=== PATIENT | female | born 1960 | race Caucasian/White ===

== ENCOUNTER → 2021-06-01 07:57 | Outpatient (BNVA) | payer OTHER, SELFPAY | PROVIDERS: PCP Internal Medicine; Visit Provider Nurse Practitioner Family | DX: G43.109 Migraine with aura, not intractable, without status migrainosus (principal); G47.33 Obstructive sleep apnea (adult) (pediatric) | CPT/HCPCS: 99212 ==

== ENCOUNTER → 2021-07-01 09:53 | Outpatient (BNVA) | payer OTHER, SELFPAY | PROVIDERS: Visit Provider Nurse Practitioner Family | DX: G43.109 Migraine with aura, not intractable, without status migrainosus (principal); G47.33 Obstructive sleep apnea (adult) (pediatric) | CPT/HCPCS: Q3014 ==

== ENCOUNTER → 2021-10-10 10:40 | Outpatient (BNVA) | payer OTHER, SELFPAY | PROVIDERS: Visit Provider Nurse Practitioner Family | DX: G43.109 Migraine with aura, not intractable, without status migrainosus (principal); H11.31 Conjunctival hemorrhage, right eye | CPT/HCPCS: 99212 ==

== ENCOUNTER → 2021-11-09 13:20 | Outpatient (BNVA) | payer OTHER, SELFPAY | PROVIDERS: PCP Internal Medicine; Visit Provider Nurse Practitioner Family | DX: G43.109 Migraine with aura, not intractable, without status migrainosus (principal); Z79.899 Other long term (current) drug therapy | CPT/HCPCS: 99212 ==

== ENCOUNTER → 2022-02-09 10:18 | Outpatient (BNVA) | payer OTHER, SELFPAY | PROVIDERS: PCP Internal Medicine; Visit Provider Nurse Practitioner Family | DX: G43.109 Migraine with aura, not intractable, without status migrainosus (principal); G47.33 Obstructive sleep apnea (adult) (pediatric) | CPT/HCPCS: 99212 ==

== ENCOUNTER → 2022-08-09 11:06 | Outpatient (BNVA) | payer OTHER, SELFPAY | PROVIDERS: PCP Internal Medicine; Visit Provider Nurse Practitioner Family | DX: G43.109 Migraine with aura, not intractable, without status migrainosus (principal); G47.33 Obstructive sleep apnea (adult) (pediatric) | CPT/HCPCS: 99212 ==

== ENCOUNTER 2023-03-09 08:48 | Outpatient (AMB) | payer OTHER, SELFPAY ==
--- NOTE | 2023-03-09 08:50 | MHC.OFFVIS ---
Intake Vital Signs 03/09/23 08:54 Weight 163 lb 2 oz BP 110/70 Blood Pressure Location Lt brachial Position Sitting Pulse 80 Pulse Source Pulse Oximeter Pulse Oximetry (%) 100 Oxygen Delivery Method Room Air Intake Visit Reasons: Follow up - HORACIO/Confirmed Intake Note: F/U sleep Nurse Companion Required: No Allergies ciprofloxacin Allergy (Intermediate, Verified 03/09/23 08:51) Unknown morphine Allergy (Intermediate, Verified 03/09/23 08:51) Unknown topiramate Allergy (Intermediate, Verified 03/09/23 08:51) Unknown HPI HPI Comments History of Present Illness Details 62 y/o female patient presents for follow up of migraine. Pt reports she has mild to moderate migraine days X2 /month. She used Fioricet twice a month to manage the migraine and helped relieve the headache. Pt is on Emgality 120 mg, monthly injection. No side effects reported. Denies eye pain or neck pain, and her mood is stable. She returned CPAP, can't sleep with CPAP, the mask was very uncomfortable. Pt does not want to use CPAP anymore. Pt stopped taking ambien, and having difficulty staying sleep. ?? She had a right total knee replacement done July,, and having difficulty walking, and gained wt. [facility] Medical History Failed total knee replacement Diabetes High blood pressure Surgical History H/O hand surgery History of thyroidectomy H/O: hysterectomy Family History Mother Diabetes Sister Stroke Other Thyroid disease Social History (Updated 03/09/23 @ 08:54 by Meme Mathews CMA) Household Members: None Alcohol intake: never Patient Tobacco Use Status: Never used Tobacco Review of Systems Const All systems reviewed & are unremarkable except as noted in HPI and below ENT Reports Normal hearing present Neuro Reports Normal hearing present Physical Exam Vital Signs: Last Vital Signs Pulse 80 03/09/23 08:54 BP 110/70 03/09/23 08:54 Pulse Ox 100 03/09/23 08:54 Oxygen Delivery Method Room Air 03/09/23 08:54 Const General: cooperative Orientation/consciousness: patient oriented x3 Limitations: ambulation with walker Resp Effort & Inspection: normal respiratory effort and able to speak in complete sentences Neuro General: patient oriented x3 and moves all extremities Cranial nerves: Yes Bilaterally intact EOM present, Yes Normal facial strength present, Yes Midline tongue present, Yes Symmetric palate elevation present, Yes Normal hearing present, Yes Ability to bilaterally rotate head present and Yes Ability to bilaterally elevate shoulders present Cognition (Neuro): normal cognition Gait exam (Neuro): Assistive device used Psych Appearance: grossly normal Speech and movement: Normal speech and movement present Affect: normal affect Assessment & Plan Assessment & Plan (1) Chronic migraine with aura: Comment: sees bright spots. ? medication adaption headache component. Code(s): G43.109 - Migraine with aura, not intractable, without status migrainosus (2) Obstructive sleep apnea: Comment: not on CPAP- pt returned machine Code(s): G47.33 - Obstructive sleep apnea (adult) (pediatric) Plan Continue to take monthly Emgality 120 mg injection. Pt may use Fioricet as needed to treat acute migraine attack. Advised patient to try Calm Sleep supplement to help her sleep. Medications: New doxyenocjd-jpuxiemufxemw-fnff 50-300-40 mg (Fioricet) 1 cap PO ONCE PRN 14 caps 1RF pain 90 days Refilled galcanezumab-gnlm (Emgality Pen) Loading dose x's 1- 2 120mg injections = 240mg 120 mg subcut ONCE 1 mL 6RF 1 month Discontinued wdtfduwiwn-regupykgubhun-utdb 50-300-40 mg (Fioricet) 1 tab at onset of migraine, may repeat in 4 hours with no more than 2 tabs per day and 4 tabs per week Discontinued Reason: Doctor's Order 1 cap PO Q4H PRN 24 caps 3RF pain Coding Level of Care Code Est Pt Level 3 (10784) Diagnoses Chronic migraine with aura G43.109 Obstructive sleep apnea G47.33
[2023-03-09 08:54] VITALS: BP 110/70; PULSE 80; O2SAT 100
== END 2023-03-09 09:18 | disposition home or self-care (01) ==
PROVIDERS: PCP Internal Medicine; Visit Provider Nurse Practitioner Family
DX: G43.109 Migraine with aura, not intractable, without status migrainosus (principal); G47.33 Obstructive sleep apnea (adult) (pediatric)
CPT/HCPCS: 99213

== ENCOUNTER → 2023-03-09 08:48 | Outpatient (BNVA) | payer OTHER, SELFPAY | PROVIDERS: PCP Internal Medicine; Visit Provider Nurse Practitioner Family | DX: G43.109 Migraine with aura, not intractable, without status migrainosus (principal); G47.33 Obstructive sleep apnea (adult) (pediatric) | CPT/HCPCS: 99212 ==

== ENCOUNTER 2023-12-19 11:24 | Outpatient (AMB) | payer OTHER, SELFPAY ==
--- NOTE | 2023-12-19 11:29 | A.OFFVIS_ITS ---
Vital Signs 12/19/23 11:30 Height 5 ft 3 in Weight 173 lb BMI 30.6 BP 118/82 Blood Pressure Location Rt brachial Position Sitting Pulse 88 Pulse Source Pulse Oximeter Pulse Oximetry (%) 98 Oxygen Delivery Method Room Air Intake Visit Reasons: 6 mnts f/u for HORACIO - LVM Intake Note: Patient presents for follow up. Allergies ciprofloxacin Allergy (Intermediate, Verified 12/19/23 11:32) Unknown morphine Allergy (Intermediate, Verified 12/19/23 11:32) Unknown topiramate Allergy (Intermediate, Verified 12/19/23 11:32) Unknown Medication List - Last Reconciled 12/19/23 by Usha Bhandari, ACID POLYMERIZATION OPERATOR albuterol sulfate 90 mcg/actuation 2 puffs inhalation Q6H PRN albuterol sulfate mg inhalation Q6H PRN blood sugar diagnostic (FreeStyle Lite Strips) As directed twice a day yzptlutnxo-gzgazrabzvtiu-rrtf 50-300-40 mg (Fioricet) 1 cap PO ONCE PRN 90 days calcium carbonate-vitamin D3 600 mg-10 mcg (400 unit) 0 tabs PO DAILY PRN cholecalciferol (vitamin D3) (Vitamin D3) 25 mcg PO DAILY clonazepam 1 mg PO BID PRN cyanocobalamin (vitamin B-12) (Vitamin B-12) 1,000 mcg PO DAILY empagliflozin (Jardiance) 10 mg PO DAILY fluticasone propionate 110 mcg/actuation (Flovent HFA) 1 puff PO BID galcanezumab-gnlm (Emgality Pen) 120 mg subcut ONCE 1 month hydromorphone 0 mg PO lisinopril 20 mg PO DAILY metformin 1,000 mg PO BID omeprazole 20 mg PO DAILY oxycodone-acetaminophen 5-325 mg 1 tab PO Q8H PRN simvastatin 10 mg PO DAILY PRN tizanidine 2 mg PO TID tramadol 50 - 100 mg PO QID PRN HPI Comments Details: 63-yr-old female presents for f/u visit. Pt reports she had a [facility] ER eval for chest pain a/w a severe pressure headache (not her typical migraine) and dizziness after bending over and standing up. She states that she took a Fioricet which helped the headache a little, but the chest pain persisted. Thus, she went to the ER, where work-up was unremarkable. She is scheduled for stress test at Cardiology, which had been ordered prior to the ER eval d/t she had been having episodes of HTN and chest pain- but not as severe as the day of the ER eval. She is having a low grade migraine headache once in a while. She may have a more severe migraine attack once every month or every other month. Sometimes heat can trigger her migraines. She is complaint w/ Emgality. Using Tylenol for milder migraine and the Fioricet prn for severe migraine attacks. Baseline headache characteristics: Bifrontal/temporal throbbing pain headache a/w photophobia, phonophobia, nausea, activity intolerance. [facility] Medical History Failed total knee replacement Diabetes High blood pressure Surgical History H/O hand surgery History of thyroidectomy H/O: hysterectomy Family History Mother Diabetes Sister Stroke Other Thyroid disease Social History Household Members: None Alcohol intake: never Patient Tobacco Use Status: Never used Tobacco Physical Exam Vital Signs: Last Vital Signs Pulse 88 12/19/23 11:30 BP 118/82 12/19/23 11:30 Pulse Ox 98 12/19/23 11:30 Oxygen Delivery Method Room Air 12/19/23 11:30 BMI result Body Mass Index 30.6 Const General: cooperative and no acute distress Orientation/consciousness: patient oriented x3 Resp Effort & Inspection: normal respiratory effort and able to speak in complete sentences Neuro General: patient oriented x3 Cranial nerves: Yes CN's II-XII intact bilaterally Cognition (Neuro): normal cognition Psych Appearance: grossly normal Mental Status: mental status grossly normal Speech and movement: Normal speech and movement present Affect: normal affect Attitude: cooperative Assessment & Plan Assessment & Plan (1) Migraine with aura: Code(s): G43.109 - Migraine with aura, not intractable, without status migrainosus Category: Medical (2) Obstructive sleep apnea: Comment: not on CPAP- pt returned machine Code(s): G47.33 - Obstructive sleep apnea (adult) (pediatric) Category: Medical Plan fFor migraine prevevntion: Continue Emgality 120mg sc q month. Previous migraine tx trials: Propranol ineffective after > 1 yr. Amitriptyline- caused palpitations. Mag and B2- not effective For acute migraine tx: Tylenol prn milder migraine Fioricet- prn severe migraine, as this is effective and pt using sparingly. Pt's pays [id number] as not FDA approved indication. For HORACIO: Monitor sleep. Pt is scheduled for satress test. If cardiac work-up is abnormal- consider f/u of HORACIO tx. Pt advsied to notify is she has recurrence of headache triggered by position changes. f/u in 6 months or sooner prn Medications: Changed From galcanezumab-gnlm (Emgality Pen) Loading dose x's 1- 2 120mg injections = 240mg 120 mg subcut ONCE 1 month 1 mL 6RF G43.109 - Migraine with aura, not intractable, without status migrainosus, G47.33 - Obstructive sleep apnea (adult) (pediatric) To galcanezumab-gnlm (Emgality Pen) Maintenance dose 120mg sc q month 120 mg subcut ONCE 1 month 1 mL 11RF G43.109 - Migraine with aura, not intractable, without status migrainosus, G47.3 3 - Obstructive sleep apnea (adult) (pediatric) From wwzhybejdm-zjtrkslwthkxn-hlbi 50-300-40 mg (Fioricet) 1 cap PO ONCE 90 days PRN 14 caps 1RF pain To fbatekvceq-hlkulyqsjxhqm-swdk 50-300-40 mg (Fioricet) 1 cap PO ONCE 30 days PRN 14 caps 2RF pain Coding Level of Care Code Est Pt Level 4 (98440) Diagnoses Migraine with aura G43.109 Obstructive sleep apnea G47.33
[2023-12-19 11:30] VITALS: BP 118/82; PULSE 88; O2SAT 98; BMI 30.6
== END 2023-12-19 11:58 | disposition home or self-care (01) ==
PROVIDERS: PCP Internal Medicine; Visit Provider Nurse Practitioner Family
DX: G43.109 Migraine with aura, not intractable, without status migrainosus (principal); G47.33 Obstructive sleep apnea (adult) (pediatric)
CPT/HCPCS: 99214

== ENCOUNTER → 2023-12-19 11:24 | Outpatient (BNVA) | payer OTHER, SELFPAY | PROVIDERS: PCP Internal Medicine; Visit Provider Nurse Practitioner Family | DX: G47.33 Obstructive sleep apnea (adult) (pediatric) (principal); G43.109 Migraine with aura, not intractable, without status migrainosus; I10 Essential (primary) hypertension; R07.9 Chest pain, unspecified | CPT/HCPCS: 99212 ==

== ENCOUNTER 2024-07-02 11:25 | Outpatient (AMB) | payer OTHER, SELFPAY ==
[2024-07-02 11:29] VITALS: BMI 27.5
--- NOTE | 2024-07-02 11:29 | A.OFFVIS_ITS ---
Vital Signs 07/02/24 11:29 07/02/24 11:34 Height 5 ft 3 in 5 ft 3 in Weight 155 lb 177 lb BMI 27.5 31.4 BP 120/84 Blood Pressure Location Lt brachial Position Sitting Pulse 73 Pulse Source Pulse Oximeter Pulse Oximetry (%) 97 Oxygen Delivery Method Room Air Intake Visit Reasons: 6mo F/U Intake Note: Patient presents follow up migraine/HORACIO Finance Professor Required: No Accompanied by: Self / Same As Patient Allergies ciprofloxacin Allergy (Intermediate, Verified 07/02/24 11:37) Unknown morphine Allergy (Intermediate, Verified 07/02/24 11:37) Unknown topiramate Allergy (Intermediate, Verified 07/02/24 11:37) Unknown Medication List - Last Reconciled 07/02/24 by CHICHI Macedo albuterol sulfate 90 mcg/actuation 2 puffs inhalation Q6H PRN albuterol sulfate mg inhalation Q6H PRN amlodipine (Norvasc) 2.5 mg PO DAILY blood sugar diagnostic (FreeStyle Lite Strips) As directed twice a day pgqeqfvyxt-tpsikolqsrnke-jxnj 50-300-40 mg (Fioricet) 1 cap PO ONCE PRN 30 days calcium carbonate-vitamin D3 600 mg-10 mcg (400 unit) 0 tabs PO DAILY PRN cholecalciferol (vitamin D3) (Vitamin D3) 25 mcg PO DAILY clonazepam 1 mg PO BID PRN cyanocobalamin (vitamin B-12) (Vitamin B-12) 1,000 mcg PO DAILY empagliflozin (Jardiance) 10 mg PO DAILY fluticasone propionate 110 mcg/actuation (Flovent HFA) 1 puff PO BID galcanezumab-gnlm (Emgality Pen) 120 mg subcut ONCE 1 month hydromorphone 0 mg PO lisinopril 20 mg PO DAILY metformin 1,000 mg PO BID omeprazole 20 mg PO DAILY oxycodone-acetaminophen 5-325 mg 1 tab PO Q8H PRN simvastatin 10 mg PO DAILY PRN tizanidine 2 mg PO TID tramadol 50 - 100 mg PO QID PRN HPI Comments Details: 63-yr-old female presents for f/u visit. Since last visit, she reports she had follow-up stress test- which she reports is normal. She has since seen Cardiology at [facility], who added Norvasc 2.5 mg q.d. to her current lisinopril dose to optimize her HTN control. She has cardiology follow-up next month. Her BP has been normotensive since. In the past, she briefly used a CPAP for sleep apnea, though the mask caused her to feel claustrophobic which led to cessation. Headache review: - Headaches continue to be improved with monthly Emgality injections, though will have increased frequency if she receives her dose late due to shipping delays. - Baseline headache characteristics: Bifrontal/temporal throbbing pain headache a/w photophobia, phonophobia, nausea, activity intolerance. - Migraine frequency now is typically less than monthly. - Breakthrough headaches managed occasionally with Tylenol or Fioricet for more severe migraine attack. - No positional changes affect headache incidence. Headache Lifestyle Factors- - Caffeine: Occasional morning coffee. - Limited exercise due to knee pain, prefers summer for more active periods. Sleep- Typical bedtime: 9:00 PM with sleep onset around 4:00 AM. - Arousals at 4:00 AM, unable to return to sleep. - Takes daily afternoon naps around 3:00 PM for 2 hours. - Sleep environment: Cold and dark room, preference for these conditions. - Evening routine includes reading the Bible before sleep. 12/19/2023 HPI: Pt reports she had a [facility] ER eval for chest pain a/w a severe pressure headache (not her typical migraine) and dizziness after bending over and standing up. She states that she took a Fioricet which helped the headache a little, but the chest pain persisted. Thus, she went to the ER, where work-up was unremarkable. She is scheduled for stress test at Cardiology, which had been ordered prior to the ER eval d/t she had been having episodes of HTN and chest pain- but not as severe as the day of the ER eval. She is having a low grade migraine headache once in a while. She may have a more severe migraine attack once every month or every other month. Sometimes heat can trigger her migraines. She is complaint w/ Emgality. Using Tylenol for milder migraine and the Fioricet prn for severe migraine attacks. [facility] Medical History Failed total knee replacement Diabetes High blood pressure Surgical History H/O hand surgery History of thyroidectomy H/O: hysterectomy Family History Mother Diabetes Sister Stroke Other Thyroid disease Social History Household Members: None Alcohol intake: never Patient Tobacco Use Status: Never used Tobacco Physical Exam Vital Signs: Last Vital Signs Pulse 73 07/02/24 11:34 BP 120/84 07/02/24 11:34 Pulse Ox 97 07/02/24 11:34 Oxygen Delivery Method Room Air 07/02/24 11:34 BMI result Body Mass Index 31.4 Const General: cooperative and no acute distress Orientation/consciousness: patient oriented x3 Resp Effort & Inspection: normal respiratory effort and able to speak in complete sentences Neuro General: patient oriented x3 Cranial nerves: Yes CN's II-XII intact bilaterally Cognition (Neuro): normal cognition Psych Appearance: grossly normal Mental Status: mental status grossly normal Speech and movement: Normal speech and movement present Affect: normal affect Attitude: cooperative Assessment & Plan Assessment & Plan (1) Migraine with aura: Code(s): G43.109 - Migraine with aura, not intractable, without status migrainosus Category: Medical (2) Obstructive sleep apnea: Comment: not on CPAP- pt returned machine Code(s): G47.33 - Obstructive sleep apnea (adult) (pediatric) Category: Medical Plan For general health and overall headache management: - Communicate episodes of low blood sugar to your primary care doctor. - Follow up with your gymnastic teacher as scheduled for blood pressure management. For migraine prevention: Continue Emgality 120mg sc q month. Previous migraine tx trials: Propranol ineffective after > 1 yr. Amitriptyline- caused palpitations. Mag and B2- not effective For acute migraine tx: Tylenol prn milder migraine Fioricet- prn severe migraine, as this is effective and pt using sparingly. Patient pays [id number] as migraine is not an FDA approved indication. For HORACIO: - Monitor sleep. - Avoid taking naps during the day to help improve nighttime sleep. - Maintain good sleep hygiene by ensuring the bedroom is cool, dark, and quiet. - Avoid caffeine in the afternoon and evening. - if sleep or cardiac symptoms worsening, consider f/u sleep study to assess status of HORACIO. f/u in 6 months or sooner prn Coding Level of Care Code Est Pt Level 4 (49264) Diagnoses Migraine with aura G43.109 Obstructive sleep apnea G47.33
[2024-07-02 11:34] VITALS: BP 120/84; PULSE 73; O2SAT 97; BMI 31.4
--- OUTSIDE RECORDS SUMMARY | 2024-07-02 14:22 | XMS_ITS | Encounter Summary ---
Author Organization [facility] Address [address] [place] [address] Care Team Providers Care Locker Operator Name Role Phone Lennie Moore MD Primary Care Provider Encounter Details Date Type Department Care Team (Late st Contact Info) Description 05/08/2024 Telephone Adult Medicine [facility] [address] [place] [phone] Lennie Moore MD [address] [place], [place] [id number] Social History Tobacco Use Types Packs/Day Years Used Date Smoking Tobacco: Never Smokeless Tobacco: Never Alcohol Use Standard Drinks/Week Comments No 0 (1 standard drink = 0.6 oz pur e alcohol) Comments Unknown Sex and Gender Information Value Date Recorded Sex Assigned at Not on file Legal Sex Female 11:43 PM EST Gender Identity Not on file Sexual Orientation Not on file documented as of this encounter Plan of Treatment Upcoming Encounters Date Type Department Care Team (Late st Contact Info) Description 08/12/2024 9:30 AM EDT Office Visit Adult Medicine [facility] [address] [place] [phone] Lennie Moore MD [address] [place], [place] [phone] 08/22/2024 9:10 AM EDT Office Visit [facility] [address] [place] [phone] Katie Medel NP [address] [place] [address] [address] [place] [address] documented as of this encounter Visit Diagnoses Not on filedocumented in this encounter Care Teams Locker Operator Relationship Specialty Start Date End Date Lennie Moore MD [address] [place] [id number] PCP - General Internal Medicine 03/13/24 documented as of this encounter
--- OUTSIDE RECORDS SUMMARY | 2024-07-02 14:22 | XMS_ITS | Encounter Summary ---
Author Organization [facility] Address [address] [place] [address] Care Team Providers Care Stitchdowns Toe Former Name Role Phone Lennie Moore MD Primary Care Provider Reason for Visit * Reason Onset Date Comments Fitting for DME 05/30/2024 Encounter Details Date Type Department Care Team ([facility] st Contact Info) Description 05/30/2024 Telephone Adult Medicine [facility] [address] [place] [phone] Ezequiel Lamas PA [address] [place] [address] Fitting for DME Social History Tobacco Use Types Packs/Day Years [...] on file documented as of this encounter Progress Notes * Janusz Wells MA - 06/02/2024 1:33 PM EST Faxed to [facility] @ [phone]. * GERBER Gaspar - 06/02/2024 11:25 AM EST Has been signed. * Janusz Wells MA - 06/02/2024 10:15 AM ESTAddended by: JANUSZ WELLS on: 06/02/2024 10:15 AM Modules accepted: Orders * Janusz Wells MA - 06/02/2024 10:10 AM EST As per your request: Please note that the bedside stand is part of the bars. It is a Bar stand/rails. In your in basket. Thank you in advance * GERBER Gaspar - 05/30/2024 4:02 PM EST Patient with history of chronic knee pain, ambulates with cane and poses fall risk. Would benefit from having a bed stand so that she can safely get out of bed. She also is on multiple medications which have the potential to increase falls and would benefit from having bed rails on the side of her bed to prevent falls. Please order bed rails and a bed stand for patient. documented in this encounter Plan of Treatment Upcoming Encounters Date Type Department Care Team (Late st Contact Info) Description 08/12/2024 9:30 AM EDT Office Visit Adult Medicine - [place] [address] [place] [address] Lennie Moore MD [address] [place] [address] 08/22/2024 9:10 AM EDT Office Visit [facility] [address] [place] [phone] Katie Medel NP [address] [place] [address] [address] [place] [address] documented as of this encounter Visit Diagnoses Diagnosis Arthritis- Primary Unspecified arthropathy, site unspecified Primary osteoarthritis of both knees Controlled type 2 diabetes mellitus with diabetic neuropathy, without long-term current use of insulin ([facility]) documented in this encounter Orders General Supply Count Last Ordered Date First Or dered Date GENERAL SUPPLY 1 06/02/2024 documented in this encounter Care Teams Stitchdowns Toe Former Relationship Specialty Start Date End Date Lennie Moore MD [address] [place] [phone] PCP - General Internal Medicine 03/13/24 documented as of this encounter
--- OUTSIDE RECORDS SUMMARY | 2024-07-02 14:22 | XMS_ITS | Encounter Summary ---
Author Organization [facility] Address [address] [place] [address] Care Team Providers Care Per Diem Physical Therapist Assistant Name Role Phone Lennie Moore MD Primary Care Provider Reason for Visit * Reason Comments med review Encounter Details Date Type Department Care Team ([facility] st Contact Info) Description 05/30/2024 3:30 PM EST Office Visit Adult Medicine [facility] [address] [place] [address] Ezequiel Lamas PA [address] [place] [address] Other migraine without status migrainosus, not intractable (Primary Dx); Controlled type 2 diabetes mellitus with diabetic neuropathy, without long-term current use of insulin ([facility]); Uncomplicated asthma, unspecified asthma severity, unspecified whether persistent; Primary hypertension; Gastroesophageal reflux disease, unspecified whether esophagitis present; Arthritis; Anxiety; Major depressive disorder, remission status unspecified, unspecified whether recurrent; Opioid contract exists Social History Tobacco Use Types Packs/Day Years [...] on file documented as of this encounter Last Filed Vital Signs Vital Sign Reading Time Taken Comments Blood Pressure 99/70 05/30/2024 3:21 PM EST Pulse 89 05/30/2024 3:21 PM EST Temperature 36.5 ??C (97.7 ??F) 05/30/2024 3:21 PM ES T Respiratory Rate - - Oxygen Saturation - - Inhaled Oxygen Concentration - - Weight 80.5 kg (177 lb 8 oz) 05/30/2024 3:21 PM EST Height 160 cm (5' 3 ) 05/30/2024 3:21 PM EST Body Mass Index 31.44 05/30/2024 3:21 PM EST documented in this encounter Ordered Prescriptions Prescription Sig Dispense Quantity Refills Last Filled Start Date End Date omeprazole (PriLOSEC) [address] capsule Take 1 capsule (20 mg total) by mouth 1 (one) time each day. Do not crush or chew. 90 each 05/30/2024 documented in this encounter Progress Notes * GERBER Gaspar - 05/30/2024 3:30 PM EST SUBJECTIVE: Lizbet Wagner is a 63 y.o. female who presents today for Chief Complaint Patient presents with med review HPI: I am seeing Lizbet today for the second time. I have not seen her since January 2023. Here for medication review and follow-up. Uses a cane for ambulation assistance. Gets [facility] services. She is askingfor prescription for bed rails that she has had a couple falls out of bed. She is on a couple sedative medications. Her bed is also elevated and she has difficulty getting her feet on the floor in the morning and asking for a stepstool or stand. She reports that she has not had an increase in acid reflux symptoms for the past month. Used to beon PPI but at some point was switched to Pepcid which was working but it is not working anymore. Unclear why her PPI was discontinued. No nausea or vomiting. No blood in the stool or dark stools. Diabetes is currently managed on Jardiance and glipizide 2.5 mg twice daily. States fasting sugars 120-130 and postprandials 150-170. Due for A1c check. HTN- BP low normal today 89/41 on the left and 99/70 on the right. She is on lisinopril 20 mg dailyand amlodipine 2.5 mg daily. Advised to discontinue amlodipine as she is endorsing intermittent dizziness. HPLD- Managed on simvastatin 20 mg daily. Due for lipid check today, she is not fasting. She has chronic joint pain and arthritis and is on a [facility]SC agreement for Percocet twice daily as needed. Only takes as needed. Due for UDS. She is followed by psychiatry for management of anxiety and insomnia. She is on venlafaxine 75 mg daily, Klonopin twice daily as needed, mirtazapine 15 mg nightly. Chronic Headaches- Following with [facility] neurology, she is on Emgality which works well. Current Meds: Current Outpatient Medications: albuterol 2.5 mg /3 mL (0.083 %) nebulizer solution, USE 1 VIAL VIA NEBULIZER EVERY 6 HOURS NEEDED FOR WHEEZING (BULK), Disp: 180 mL, Rfl: 1 albuterol HFA (PROAIR HFA ; PROVENTIL HFA ; VENTOLIN HFA) 90 mcg/actuation inhaler, INHALE 2 PUFFS INTO THE LUNGS EVERY 6 HOURS NEEDED FOR COUGH OR WHEEZING, Disp: 25.5 g, Rfl: 0 albuterol HFA (PROAIR HFA ; PROVENTIL HFA ; VENTOLIN HFA) 90 mcg/actuation inhaler, Inhale 2 puffs by mouth., Disp: , Rfl: blood sugar diagnostic (FreeStyle Lite Strips) test strip, USE 1 STRIP TO TEST BLOOD GLUCOSE DAILY,Disp: , Rfl: calcium carbonate-vitamin D 600 mg-10 mcg (400 unit) per tablet, TAKE ONE TABLET BY MOUTH EVERY DAY^1R3, Disp: 90 tablet, Rfl: 1 calcium carbonate-vitamin D 600 mg-10 mcg (400 unit) per tablet, , Disp: , Rfl: cholecalciferol (VITAMIN D-3) 25 mcg (1,000 unit) capsule, TAKE ONE CAPSULE BY MOUTH EVERY DAY ^1R2, Disp: 90 capsule, Rfl: 0 clonazePAM (KlonoPIN) 1 mg tablet, Take by mouth., Disp: , Rfl: fluticasone HFA (FLOVENT HFA) 110 mcg/actuation inhaler, INHALE 2 PUFFS INTO THE LUNGS TWICE DAILY,Disp: , Rfl: folic acid (FOLVITE) 1 mg tablet, TAKE ONE TABLET BY MOUTH EVERY DAY ^1R2, Disp: 90 tablet, Rfl: 0 FREESTYLE LANCETS MISC, 1 Each by Does not apply route daily., Disp: , Rfl: galcanezumab-gnlm (Emgality Pen) 120 mg/mL injection pen, Inject 240 mg into the skin., Disp: , Rfl: glipiZIDE (GLUCOTROL XL) 2.5 mg 24 hr tablet, TAKE ONE TABLET BY MOUTH TWICE A DAY ^1R2,1R4, Disp: 60 tablet, Rfl: 2 Jardiance 10 mg tablet, TAKE ONE TABLET BY MOUTH EVERY DAY ^1R2, Disp: 90 tablet, Rfl: 0 lisinopriL (PRINIVIL,ZESTRIL) 20 mg tablet, Take 1 tablet (20 mg total) by mouth 1 (one) time each day., Disp: 90 each, Rfl: 0 mirtazapine (REMERON) 15 mg tablet, Per psych for insomnia, Disp: , Rfl: oxyCODONE-acetaminophen (PERCOCET) 5-325 mg per tablet, Take 1 tablet by mouth every 12 (twelve) hours if needed (pain) for up to 28 days. Max Daily Amount: 2 tablets, Disp: 56 tablet, Rfl: 0 simvastatin (ZOCOR) 10 mg tablet, Take 1 tablet (10 mg total) by mouth at bedtime. at bedtime., Disp: 90 each, Rfl: 1 venlafaxine XR (EFFEXOR-XR) 75 mg 24 hr capsule, , Disp: , Rfl: butalbitaL-acetaminophen 50-325 mg tablet, Take 1 Tablet by mouth every 4 hours as needed (headaches). Per neuro, Disp: , Rfl: cyanocobalamin (VITAMIN B-12) 1,000 mcg tablet, Take 1 tablet (1,000 mcg total) by mouth 1 (one) time each day., Disp: , Rfl: omeprazole (PriLOSEC) [address] capsule, Take 1 capsule (20 mg total) by mouth 1 (one) time each day. Do not crush or chew., Disp: 90 each, Rfl: 0 Allergies: Allergies Allergen Reactions Latex Aspirin Itching Ciprofloxacin-Hydrocortisone Hives Morphine Other MOTRIN (ASPARTAME-FD&C YELLOW Immunizations: Immunization History Administered Date(s) Administered Influenza Quadravalent, MDCK, 0.5ml, preservative free (Flucelvax) 6mo and older 03/24/2020, 05/11/2021, 01/26/2023 Influenza Quadravalent, MDCK, 0.5ml, with preservative (Flucelvax) 6mo and older 01/10/2018 Influenza trivalent, 0.5mL, preservative free (Fluarix; FluLaval; Fluzone) ages 6mo and older (Afluria) 3 years and older 01/28/2024 Influenza trivalent, with preservative (Fluzone; Afluria) 6mo and older 01/09/2013, 02/10/2014, 04/19/2016 Influenza, Unspecified 05/18/2021 Moderna SARS-CoV-2 COVID-19, mRNA, LNP-S, preservative free 08/20/2020, 09/17/2020, 06/11/2021, 07/09/2021 Pneumococcal polysaccharide 23 valent (Pneumovax 23) 2yo and older 09/26/2012 Tdap Tetanus diptheria acellular pertussis (Boostrix; Adacel) 7yo and older 2011, 09/26/2012,01/28/2024 Active Problems: Patient Active Problem List Diagnosis Anxiety Arthritis Asthma Chest pain COVID-19 Depression, major GERD (gastroesophageal reflux disease) Headache disorder HTN (hypertension) Insomnia Iron deficiency anemia Migraine without status migrainosus, not intractable Multiple thyroid nodules Osteoarthritis of both knees Osteopenia S/P partial thyroidectomy DM (diabetes mellitus) type II controlled, neurological manifestation ([facility]/HCC) Type 2 diabetes mellitus ([facility]/HCC) HISTORY: Past Medical History: Diagnosis Date Anxiety DX:Anxiety Arthritis DX:Arthritis Asthma 07/04/2013 DX:Asthma Depression, major DX:Depression, major; COMMENT: follows at [address] [place] [address] Family history of cardiovascular disease DX:Family history of cardiovascular disease GERD (gastroesophageal reflux disease) 02/24/2016 DX:GERD (gastroesophageal reflux disease) Headache disorder DX:Headache disorder; COMMENT: seen neurologist on meds at [facility] MRi brain done in 2010 shod mild dilatation of ventricles- normal variant vs early normal pressure hydrocephalus HTN (hypertension) DX:HTN (hypertension) Insomnia DX:Insomnia Iron deficiency anemia 01/10/2013 DX:Iron deficiency anemia Multiple thyroid nodules DX:Multiple thyroid nodules; COMMENT: s/p biopsy in 2012- benign follicular cells Osteoarthritis of both knees 09/26/2012 DX:Osteoarthritis of both knees Osteopenia 02/06/2019 DX:Osteopenia Type 2 diabetes mellitus (CMS/HCC) DX:Type 2 diabetes mellitus (HCC) Type 2 diabetes, controlled, with neuropathy (CMS/HCC) 09/26/2012 DX:Type 2 diabetes, controlled, with neuropathy (HCC) Past Surgical History: Procedure Laterality Date COLONOSCOPY 01/03/2013 PROCEDURE: HISTORICAL COLONOSCOPY; COMMENT: normal; repeat in ten yrs HYSTERECTOMY 05/2013 PROCEDURE: MI VAGINAL HYSTERECTOMY UTERUS 250 GM/< OTHER SURGICAL HISTORY Right 04/2015 PROCEDURE: MI ARTHRS WRST EXC&/RPR TRIANG FIBROCART&/JOINT; COMMENT: reconstruction of th ert wrist doen OTHER SURGICAL HISTORY PROCEDURE: HISTORICAL SUBTOTAL THYROIDECTOMY OTHER SURGICAL HISTORY Right 07/17/2022 PROCEDURE: REFERRAL TO INTERVENTIONAL RADIOLOGY; COMMENT: with [facility] TUBAL LIGATION PROCEDURE: HISTORICAL TUBAL LIGATION Family History Problem Relation Name Age of Onset Diabetes Mother Heart attack Father chol, htn, heart problems, in his 60s Hypertension Sister chol, mi, dm Heart attack Brother at 36 Social History Socioeconomic History Marital status: Spouse name: Not on file Number of children: Not on file Years of education: Not on file Highest education level: Not on file Occupational History Not on file Tobacco Use Smoking status: Never Smokeless tobacco: Never Substance and Sexual Activity Alcohol use: No Drug use: No Sexual activity: Not on file Other Topics Concern Not on file Social History Narrative Not on file REVIEW OF SYSTEMS: Pertinent items are noted in HPI. VITAL SIGNS Vitals: 05/30/24 1521 BP: 99/70 BP Location: Right arm Pulse: 89 Temp: 36.5 ??C (97.7 ??F) TempSrc: Temporal Weight: 80.5 kg (177 lb 8 oz) Height: 1.6 m (63 ) Body mass index is 31.44 kg/m??. Body surface area is 1.84 meters squared. PHYSICAL EXAM: JRPE: CARDIAC: regular rate & rhythm, S1 & S2 normal. No heaves, thrills, gallops or murmurs. LUNGS: Clear to auscultation, no spinal or CV tenderness. ASSESSMENT/PLAN: Lizbet was seen today for med review. Diagnoses and all orders for this visit: Other migraine without status migrainosus, not intractable (Primary) - Comprehensive metabolic panel; Future - Hemoglobin A1c; Future - Lipid panel with reflex to direct LDL; Future - Microalbumin creatinine urine ratio; Future Controlled type 2 diabetes mellitus with diabetic neuropathy, without long-term current use of insulin ([facility]) - Comprehensive metabolic panel; Future - Hemoglobin A1c; Future - Lipid panel with reflex to direct LDL; Future - Microalbumin creatinine urine ratio; Future Uncomplicated asthma, unspecified asthma severity, unspecified whether persistent - Comprehensive metabolic panel; Future - Hemoglobin A1c; Future - Lipid panel with reflex to direct LDL; Future - Microalbumin creatinine urine ratio; Future Primary hypertension - Comprehensive metabolic panel; Future - Hemoglobin A1c; Future - Lipid panel with reflex to direct LDL; Future - Microalbumin creatinine urine ratio; Future Gastroesophageal reflux disease, unspecified whether esophagitis present - Comprehensive metabolic panel; Future - Hemoglobin A1c; Future - Lipid panel with reflex to direct LDL; Future - Microalbumin creatinine urine ratio; Future Arthritis - Comprehensive metabolic panel; Future - Hemoglobin A1c; Future - Lipid panel with reflex to direct LDL; Future - Microalbumin creatinine urine ratio; Future - Drug abuse screen expanded with reflex confirmation, urine; Future Anxiety - Comprehensive metabolic panel; Future - Hemoglobin A1c; Future - Lipid panel with reflex to direct LDL; Future - Microalbumin creatinine urine ratio; Future Major depressive disorder, remission status unspecified, unspecified whether recurrent - Comprehensive metabolic panel; Future - Hemoglobin A1c; Future - Lipid panel with reflex to direct LDL; Future - Microalbumin creatinine urine ratio; Future Opioid contract exists - Drug abuse screen expanded with reflex confirmation, urine; Future Other orders - omeprazole (PriLOSEC) [address] capsule; Take 1 capsule (20 mg total) by mouth 1 (one) time each day. Do not crush or chew. Plan BP low normal, advised to discontinue amlodipine and continue with lisinopril. Dizziness or lightheadedness could be multifactorial as she is on Remeron, Percocet, Klonopin as well. She does have ambulatory issue and ambulates with a cane and would benefit from having a stand to help her safely get out of bed. She would benefit from having bed rails to prevent falls given potential side effect profile of some of her medications. Urine drug screen ordered for today, she brought in her Percocet bottle which was filled on 05/15 andshe still had plenty left. Diabetes seemingly better, check A1c today. Adjust medications if needed. Nonfasting lipids ordered for today. Worsening GERD symptoms, switch back to PPI. Keep follow-up with psych. Advised okay to cancel appointment in July and reschedule for August. Follow-up in 3 months or return sooner if needed. No follow-ups on file. Orders Placed This Encounter Procedures Comprehensive metabolic panel Hemoglobin A1c Lipid panel with reflex to direct LDL Microalbumin creatinine urine ratio Drug abuse screen expanded with reflex confirmation, urine GERBER Gaspar documented in this encounter Plan of Treatment Upcoming Encounters Date Type Department Care Team (Late st Contact Info) Description 08/12/2024 9:30 AM EDT Office Visit Adult Medicine - [address] [address] Lennie Moore MD [address] [place] [id number] 08/22/2024 9:10 AM EDT Office Visit [facility] [address] [place] [address] Katie Medel NP [address] [place] [address] [address] [place] [address] documented as of this encounter Results * (ABNORMAL) Drug abuse screen expanded with reflex confirmation, urine (05/30/2024 4:17 PM EST) Amphetamine Screen, Ur Negative Negative LAB CHEMISTRY METHOD 5 7:49 PM EST [facility] Comment:Certain OTC medicati ons containing ephedrine, phenylephrine, pseudoephedrine and phenylpropanolamine can cause false positive results. Barbiturate Screen, Ur Positive(A ) Negative LAB CHEMISTRY METHOD 5 7:49 PM EST [facility] Benzodiazepine Screen, Ur Negative Negative LAB CHEMISTRY METHOD 5 7:49 PM EST [facility] Cocaine Screen, Ur Negative Negative LAB CHEMISTRY METHOD 5 7:49 PM EST [facility] Opiate Screen, Ur Negative Negative LAB CHEMISTRY METHOD 5 7:49 PM EST [facility] Cannabinoid (THC) Screen, Ur Negative Negative LAB CHEMISTRY METHOD 5 7:49 PM EST [facility] Comment:Specimens from patie nts taking pantoprazole sodium (Protonix) have been shown to produce false positive results. Fentanyl, Ur Negative Negative LAB CHEMISTRY METHOD 5 7:49 PM EST [facility] Oxycodone Screen, Ur Positive(A ) Negative LAB CHEMISTRY METHOD 5 7:49 PM EST [facility] Urine Urine specimen obtained by clean catch procedure / Unknown Non-blood Collection / Unknown 05/30/2024 4:17 PM EST 05/30/2024 4:[address] [facility] - 05/30/2024 7:49 PM EST Assay cutoffs: Amphetamines ? 1000 ng/mL Barbiturates ?200 ng/mL Benzodiazepines ?? 200 ng/mL Cocaine ? 300 ng/mL Fentanyl ?1 ng/mL Opiates ? 300 ng/mL Oxycodone ? 100 ng/mL THC ?50 ng/mL Semi-quantitative assay for screening purposes only. Unconfirmed screening result should not be used for non-medical purposes. *POSITIVE RESULTS ARE AUTOMATICALLY SENT FOR ALTERNATE METHOD CONFIRMATION* us Ezequiel MAYES LAB URINE ORDERABLES Final Re sult [facility]) [facility] [address] [place] [address], * Microalbumin creatinine urine ratio (05/30/2024 4:17 PM EST) Creatinine, Urine 87.0 mg/dL LAB CHEMISTRY METHOD 05/30/2024 7:49 PM EST [facility] Microalb, Ur 9.2 0.0 - 29.0 mg/L LAB CHEMISTRY METHOD 05/30/2024 7:49 PM [facility] Microalb/Creat Ratio 11 <30 mg/g creat LAB CHEMISTRY METHOD 05/30/2024 7:49 PM [facility] Urine Urine specimen obtained by clean catch procedure / Unknown Non-blood Collection / Unknown 05/30/2024 4:17 PM EST 05/30/2024 4:17 PM EST us Ezequiel MAYES LAB URINE ORDERABLES Final Re sult [facility] [address] [place] [address], [place] [phone] * Lipid panel with reflex to direct LDL (05/30/2024 3:59 PM EST) Cholesterol 179 0 - 200 mg/dL LAB CHEMISTRY METHOD 05/30/2024 8:45 PM [facility] Triglycerides 148 0 - 150 mg/dL LAB CHEMISTRY METHOD 05/30/2024 8:45 PM [facility] HDL 62 >=40 mg/dL LAB CHEMISTRY METHOD 05/30/2024 8:45 PM [facility] LDL Calculated 87 0 - 100 mg/dL LAB CHEMISTRY METHOD 05/30/2024 8:45 PM [facility] VLDL Cholesterol Mikhail 29.6 mg/dL LAB CHEMISTRY METHOD 05/30/2024 8:45 PM [facility] Non HDL Chol. (LDL+VLDL) 117 <145 mg/dL LAB CHEMISTRY METHOD 05/30/2024 8:45 PM [facility] Chol/HDL Ratio 2.9 0.0 - 4.4 LAB CHEMISTRY METHOD 05/30/2024 8:45 PM [facility] Blood Venous blood specimen / Unknown Venipuncture / Unknown 05/30/2024 3:59 PM EST 05/30/2024 3:59 PM EST Ezequiel MAYES LAB BLOOD ORDERABLES Final Re sult Performing Organization Address [facility]/ZIP Co de Phone Number [facility] [address] [place] [address], [place] [phone] * (ABNORMAL) Hemoglobin A1c (05/30/2024 3:59 PM EST) Pathologist [facility] Hemoglobin A1C 6.7(H) <6.5 % LAB CHEMISTRY METHOD 05/30/2024 9:47 PM EST [facility] Mean Bld Glu Estim. 146 mg/dL LAB CHEMISTRY METHOD 05/30/2024 9:47 PM EST [facility] Blood Venous blood specimen / Unknown Venipuncture / Unknown 05/30/2024 3:59 PM EST 05/30/2024 3:59 PM EST us Ezequiel MAYES LAB BLOOD ORDERABLES Final Re sult Performing Organization Address City/[facility]/ZIP Co de Phone Number [facility] [address] [place] [address], [place] [phone] * (ABNORMAL) Comprehensive metabolic panel (05/30/2024 3:59 PM EST) Pathologist [facility] Sodium 136 133 - 145 mmol/L LAB CHEMISTRY METHOD 05/30/2024 8:45 PM EST [facility] Potassium 4.0 3.5 - 5.5 mmol/L LAB CHEMISTRY METHOD 05/30/2024 8:45 PM EST [facility] Chloride 104 96 - 110 mmol/L LAB CHEMISTRY METHOD 05/30/2024 8:45 PM EST [facility] CO2 27 21 - 32 mmol/L LAB CHEMISTRY METHOD 05/30/2024 8:45 PM EST [facility] Anion Gap 5 3 - 11 LAB CHEMISTRY METHOD 05/30/2024 8:45 PM [facility] Glucose 152(H) 70 - 100 mg/dL LAB CHEMISTRY METHOD 05/30/2024 8:45 PM [facility] BUN 16 5 - 25 mg/dL LAB CHEMISTRY METHOD 05/30/2024 8:45 PM [facility] Creatinine 0.70 0.50 - 1.10 mg/dL LAB CHEMISTRY METHOD 05/30/2024 8:45 PM [facility] eGFR 97 >=60 mL/min/1. 73m2 LAB CHEMISTRY METHOD 05/30/2024 8:45 PM [facility] Comment:Calculation based on the??Chronic Kidney Disease Epidemiology Collaboration (CKD-EPI) equation refit??without adjustment for race. BUN/Creatinine Ratio 22.9 LAB CHEMISTRY METHOD 05/30/2024 8:45 PM [facility] Calcium 9.2 8.5 - 10.5 mg/dL LAB CHEMISTRY METHOD 05/30/2024 8:45 PM [facility] AST (SGOT) 16 10 - 42 unit/L LAB CHEMISTRY METHOD 05/30/2024 8:45 PM [facility] ALT (SGPT) 23 10 - 60 unit/L LAB CHEMISTRY METHOD 05/30/2024 8:45 PM [facility] Alkaline Phosphatase 133(H) 42 - 121 unit/L LAB CHEMISTRY METHOD 05/30/2024 8:45 PM [facility] Total Protein 8.0 6.0 - 8.0 g/dL LAB CHEMISTRY METHOD 05/30/2024 8:45 PM [facility] Albumin 4.2 3.2 - 5.0 g/dL LAB CHEMISTRY METHOD 05/30/2024 8:45 PM [facility] Total Bilirubin 0.3 0.0 - 1.4 mg/dL LAB CHEMISTRY METHOD 05/30/2024 8:45 PM EST [facility] Blood Venous blood specimen / Unknown Venipuncture / Unknown 05/30/2024 3:59 PM EST 05/30/2024 3:59 PM EST us Ezequiel MAYES LAB BLOOD ORDERABLES Final Re sult [facility] [address] [place] [address], documented in this encounter Visit Diagnoses Diagnosis Other migraine without status migrainosus, not intractable- Primary Controlled type 2 diabetes mellitus with diabetic neuropathy, without long-term current use of insulin ([facility]) Uncomplicated asthma, unspecified asthma severity, unspecified whether persistent Primary hypertension Unspecified essential hypertension Gastroesophageal reflux disease, unspecified whether esophagitis present Arthritis Unspecified arthropathy, site unspecified Anxiety Anxiety state, unspecified Major depressive disorder, remission status unspecified, unspecified whether recurrent Opioid contract exists documented in this encounter Discontinued Medications Medication Sig Discontinue Reason Start Date End Da te famotidine (PEPCID) 20 mg tablet Take 1 Tablet by mouth 2 times daily as needed for Heartburn. 09/20/2023 05/30/2024 pantoprazole (PROTONIX) 40 mg EC tablet Take 1 tablet (40 mg total) by mouth 1 (one) time each day. 09/20/2023 05/30/2024 amLODIPine (NORVASC) 2.5 mg tablet Take 1 tablet (2.5 mg total) by mouth 1 (one) time each day. 12/28/2023 05/30/2024 calcium carbonate-vitamin D 600 mg-10 mcg (400 unit) per tablet Duplicate order 03/19/2024 05/30/2024 documented as of this encounter Historical Medications * This list may reflect changes made after this encounter. Medication Sig Dispense Quantity Refills Last Filled Start D ate End Date venlafaxine XR (EFFEXOR-XR) 75 mg 24 hr capsule 05/15/2024 added in this encounter Care Teams Per Diem Physical Therapist Assistant Relationship Specialty Start Date End Date Lennie Moore MD [address] [place] [id number] PCP - General Internal Medicine 03/13/24 documented as of this encounter
--- OUTSIDE RECORDS SUMMARY | 2024-07-02 14:22 | XMS_ITS | Clinical Summary ---
Author Organization [facility] Address [address] [place] [address] Phone Care Team Providers [employer] Name Role Phone Lennie Moore MD Primary Care Provider Allergies Active Allergy Reactions Criticality Noted Date Comments Aspirin Itching 12/26/2021 Ciprofloxacin-Hydrocortiso ne Hives 01/18/2016 Latex High 09/07/2022 Morphine 03/08/2018 Other 03/03/2013 MOTRIN (ASPARTAME-FD&C YELLOW Medications cyanocobalamin (VITAMIN B-12) 1,000 mcg tablet Take 1 tablet (1,000 mcg total) by mouth 1 (one) time each day. 02/14/20 23 Active butalbitaL-ford taminophen 50-325 mg tablet Take 1 Tablet by mouth every 4 hours as needed (headaches). Per neuro 09/20/19 24 Active mirtazapine (REMERON) 15 mg tablet Per psych for insomnia 08/28/19 24 Active fluticasone HFA (FLOVENT HFA) 110 mcg/actuation inhaler INHALE 2 PUFFS INTO THE LUNGS TWICE DAILY 01/02/20 23 Active galcanezumab-g nlm (Emgality Pen) 120 mg/mL injection pen Inject 240 mg into the skin. 11/30/19 22 Active clonazePAM (KlonoPIN) 1 mg tablet Take by mouth. 07/04/19 23 Active blood sugar diagnostic (FreeStyle Lite Strips) test strip USE 1 STRIP TO TEST BLOOD GLUCOSE DAILY 03/24/20 22 Active FREESTYLE LANCETS MISC 1 Each by Does not apply route daily. 02/07/20 19 Active simvastatin (ZOCOR) 10 mg tablet Take 1 tablet (10 mg total) by mouth at bedtime. at bedtime. 90 each 1 03/13/20 24 Active calcium carbonate-martir min D 600 mg-10 mcg (400 unit) per tablet TAKE ONE TABLET BY MOUTH EVERY DAY ^1R3 90 tablet 1 04/07/20 24 Active folic acid (FOLVITE) 1 mg tablet TAKE ONE TABLET BY MOUTH EVERY DAY ^1R2 90 tablet 04/25/20 24 Active cholecalcifero l (VITAMIN D-3) 25 mcg (1,000 unit) capsule TAKE ONE CAPSULE BY MOUTH EVERY DAY ^1R2 90 capsule 04/25/20 24 Active Jardiance 10 mg tablet TAKE ONE TABLET BY MOUTH EVERY DAY ^1R2 90 tablet 04/25/20 24 Active glipiZIDE (GLUCOTROL XL) 2.5 mg 24 hr tablet TAKE ONE TABLET BY MOUTH TWICE A DAY ^1R2,1R4 60 tablet 2 04/25/20 24 Active albuterol HFA (PROAIR HFA ; PROVENTIL HFA ; VENTOLIN HFA) 90 mcg/actuation inhaler INHALE 2 PUFFS INTO THE LUNGS EVERY 6 HOURS NEEDED FOR COUGH OR WHEEZING 25.5 g 05/20/19 25 Active albuterol HFA (PROAIR HFA ; PROVENTIL HFA ; VENTOLIN HFA) 90 mcg/actuation inhaler Inhale 2 puffs by mouth. 02/29/20 24 Active venlafaxine XR (EFFEXOR-XR) 75 mg 24 hr capsule 05/15/19 25 Active omeprazole (PriLOSEC) [address] capsule Take 1 capsule (20 mg total) by mouth 1 (one) time each day. Do not crush or chew. 90 each 05/30/19 25 Active lisinopriL (PRINIVIL,ZEST RIL) 20 mg tablet TAKE 1 TABLET(20 MG) BY MOUTH 1 TIME EACH DAY 90 tablet 06/09/19 25 Active albuterol 2.5 mg /3 mL (0.083 %) nebulizer solution INHALE 1 VIAL VIA NEBULIZER EVERY 6 HOURS NEEDED FOR WHEEZING (BULK) 180 mL 1 06/16/19 25 Active oxyCODONE-acet aminophen (PERCOCET) 5-325 mg per tablet Take 1 tablet by mouth every 12 (twelve) hours if needed (pain) for up to 28 days. Max Daily Amount: 2 tablets 56 tablet 06/16/19 25 025 Active lisinopriL (PRINIVIL,ZEST RIL) 20 mg tablet Take 1 tablet (20 mg total) by mouth 1 (one) time each day. 90 each 03/13/20 24 025 Discontinued albuterol 2.5 mg /3 mL (0.083 %) nebulizer solution USE 1 VIAL VIA NEBULIZER EVERY 6 HOURS NEEDED FOR WHEEZING (BULK) 180 mL 1 03/31/20 24 025 Discontinued oxyCODONE-acet aminophen (PERCOCET) 5-325 mg per tablet Take 1 tablet by mouth every 12 (twelve) hours if needed (pain) for up to 28 days. Max Daily Amount: 2 tablets 56 tablet 05/15/19 25 025 Discontinued(Re order) Active Problems Problem Noted Date Diagnosed Date Anxiety 02/13/2024 Arthritis 02/13/2024 Depression, major 02/13/2024 Headache disorder 02/13/2024 HTN (hypertension) 02/13/2024 Insomnia 02/13/2024 Multiple thyroid nodules 02/13/2024 Overview (02/13/2024): Right hemothyroidectomy Type 2 diabetes mellitus 02/13/2024 Chest pain 11/29/2023 COVID-19 05/11/2020 Osteopenia 02/06/2019 Overview (02/13/2024): Bone dnesity- osteopenia- 01/07/19 Migraine without status migrainosus, not intract able 10/21/2018 S/P partial thyroidectomy 02/12/2017 Overview (02/13/2024): [place] 02/02/17; right hemithyroidectomy; Benign GERD (gastroesophageal reflux disease) 6 Asthma 07/04/2013 Iron deficiency anemia 01/10/2013 Osteoarthritis of both knees 09/26/2012 DM (diabetes mellitus) type II controlled, neurological manifestation 09/26/2012 Encounters Date Type Department Care Team Description 05/30/2024 3:30 PM EST Office Visit Adult Medicine - [place] [address] [place] [address] Ezequiel Lamas PA Other migraine without status migrainosus, not intractable (Primary Dx); Controlled type 2 diabetes mellitus with diabetic neuropathy, without long-term current use of insulin ([facility]); Uncomplicated asthma, unspecified asthma severity, unspecified whether persistent; Primary hypertension; Gastroesophageal reflux disease, unspecified whether esophagitis present; Arthritis; Anxiety; Major depressive disorder, remission status unspecified, unspecified whether recurrent; Opioid contract exists 05/30/2024 Telephone Adult Medicine [facility] [address] [place] [address] Ezequiel Lamas PA Fitting for DME 05/08/2024 Telephone Adult [facility] [address] [place] [address] Lennie Moore MD from Last 3 Months Immunizations Name Administration Dates Next Due Influenza Quadravalent, MDCK , 0.5ml, preservative free (Flucelvax) 6mo and older 01/26/2023,05/11/2021,03/24/2020 Influenza Quadravalent, MDCK , 0.5ml, with preservative (Flucelvax) 6mo and older 01/10/2018 Influenza trivalent, 0.5mL, preservative free (Fluarix; FluLaval; Fluzone) ages 6mo and older (Afluria) 3 years and older 01/28/2024 Influenza trivalent, with pr eservative (Fluzone; Afluria) 6mo and older 04/19/2016,02/10/2014,01/09/2013 Influenza, Unspecified 05/18/2021 Moderna SARS-CoV-2 COVID-19, mRNA, LNP-S, preservative free 06/11/2021 Pneumococcal polysaccharide 23 valent (Pneumovax 23) 2yo and older 09/26/2012 Tdap Tetanus diptheria acell ular pertussis (Boostrix; Adacel) 7yo and older 01/28/2024,09/26/2012,2011 Surgical History Surgery Date Site/Laterality Comments TUBAL LIGATION PROCEDURE: HISTORICAL TUBAL LIGATION HYSTERECTOMY 05/2013 PROCEDURE: CA VAGINAL HYSTERECTOMY UTERUS 250 GM/< OTHER SURGICAL HISTORY 04/2015 Right PROCEDURE: CA ARTHRS WRST EXC&/RPR TRIANG FIBROCART&/JOINT; COMMENT: reconstruction of th ert wrist doen OTHER SURGICAL HISTORY PROCEDURE: HISTORICAL SUBTOTAL THYROIDECTOMY COLONOSCOPY 01/03/2013 PROCEDURE: HISTORICAL COLONOSCOPY; COMMENT: normal; repeat in ten yrs OTHER SURGICAL HISTORY 07/17/2022 Right PROCEDURE: REFERRAL TO INTERVENTIONAL RADIOLOGY; COMMENT: with [facility] Medical History Medical History Date Comments Type 2 diabetes mellitus (CMS/HCC) DX:Type 2 diabetes mellitus (HCC) Arthritis DX:Arthritis Insomnia DX:Insomnia HTN (hypertension) DX:HTN (hyper tension) Depression, major DX:Depression, major; COMMENT: follows at [address] [place] [address] Anxiety DX:Anxiety Family history of cardiovasc ular disease DX:Family history of cardiov ascular disease Headache disorder DX:Headache di sorder; COMMENT: seen neurologist on meds at [facility] brain done in 2010 shod mild dilatation of ventricles- normal variant vs early normal pressure hydrocephalus Type 2 diabetes, controlled, with neuropathy (CMS/HCC) 09/26/2012 DX:Type 2 diabetes, controll ed, with neuropathy ([facility]) Osteoarthritis of both knees 09/26/2012 DX: Osteoarthritis of both knees Iron deficiency anemia 01/10/2013 DX:Iron d eficiency anemia Multiple thyroid nodules DX:Mult iple thyroid nodules; COMMENT: s/p biopsy in 2012- benign follicular cells Asthma 07/04/2013 DX:Asthma GERD (gastroesophageal reflu x disease) 02/24/2016 DX:GERD (gastroesophageal re flux disease) Osteopenia 02/06/2019 DX:Osteopenia Family History Medical History Relation Name Comments Heart attack Brother 1 at 36 Heart attack Father chol, htn, hear t problems, in his 60s Diabetes Mother Hypertension Sister 1 chol, mi, dm Relation Name Status Comments Brother 1 Brother 2 Father Mother Alive Sister 1 Sister 2 Alive Social History Tobacco Use Types Packs/Day Years Used Date Smoking Tobacco: Never Smokeless Tobacco: Never Alcohol Use Standard Drinks/Week Comments No 0 (1 standard drink = 0.6 oz pur e alcohol) Comments Unknown Sex and Gender Information Value Date Recorded Sex Assigned at Not on file Legal Sex Female 11:43 PM EST Gender Identity Not on file Sexual Orientation Not on file Obstetrics History Last Filed Vital Signs Vital Sign Reading [...] Mass Index 31.44 05/30/2024 3:21 PM EST Plan of Treatment Upcoming Encounters Date Type Department Care Team (Late st Contact Info) Description 08/12/2024 9:30 AM EDT Office Visit Adult Medicine - [address] [phone] Lennie Moore MD [address] [place] [address] 08/22/2024 9:10 AM EDT Office Visit [facility] [address] [place] [phone] Katie Medel NP [address] [place] [address] [address] [place] [address] Health Maintenance Due Date Last Done Comments Diabetes: Annual Foot Exam 1970 Zoster Vaccines (1 of 2) 2010 Pneumococcal Vaccine: 50+ Years (2 of 2 - PCV) 09/26/2013 09/26/2012 Pneumococcal Vaccine: Pediatrics (0 to 5 Years) and At-Risk Patients (6 to 64 Years) (2 of 2 - PCV) 09/26/2013 09/26/2012 Breast Cancer Screening 11/29/2019 11/28/2017 RSV Immunization Patients 60+ Years Old (1 - Risk 60-74 years 1-dose series) 2020 HIV Screening 04/15/2022 Medicare Annual Wellness Visit 04/15/2022 Social Influencers of Health Screening 04/15/2022 COVID-19 Vaccine ( season) 2024 07/09/2021, 06/11/2021, 09/17/2020, Additional history exists Cervical Cancer Screening: Pap Smear 02/19/2024 02/18/2021 Diabetes: Annual Retina Eye Exam 08/20/2024 08/21/2023 Diabetes: Blood Sugar Control Test (HGBA1C) 11/27/2024 05/30/2024, 01/15/2024, 01/15/2024, Additional history exists Depression Screening 01/27/2025 01/28/2024 Diabetes: Annual Urine Albumin-Creatinine Ratio (uACR) 05/30/2025 05/30/2024, 08/28/2023 Diabetes: Annual GFR (Glomerular Filtration Rate) 05/30/2025 05/30/2024, 12/12/2023 Hypertension/CHF/CAD Annual BMP Blood Test 05/30/2025 05/30/2024, 12/12/2023 Cholesterol Screening (Lipid Panel) 05/30/2029 05/30/2024, 12/12/2023, 12/12/2023 Colorectal Cancer Screening: Colonoscopy 10/14/2033 10/15/2023 DTaP,Tdap,and Td Vaccines (4 - Td or Tdap) 01/27/2034 01/28/2024, 09/26/2012, 2011 Hepatitis C Screening Completed 11/18/2012 Influenza Vaccine Completed 01/28/2024, , 05/18/2021, Additional history exists HIB Vaccines Aged Out No longer eligi ble based on patient's age to complete this topic HPV Vaccines Aged Out No longer eligi ble based on patient's age to complete this topic Hepatitis A Vaccines Aged Out No long er eligible based on patient's age to complete this topic Hepatitis B Vaccines Aged Out No long er eligible based on patient's age to complete this topic IPV Vaccines Aged Out No longer eligi ble based on patient's age to complete this topic MMR Vaccines Aged Out No longer eligi ble based on patient's age to complete this topic Meningococcal ACWY Vaccine Aged Out N o longer eligible based on patient's age to complete this topic Meningococcal B Vacine Aged Out No lo nger eligible based on patient's age to complete this topic RSV Immunization Patients Under 20 months Aged Out No longer eligible based on patient's age to complete this topic Varicella Vaccines Aged Out No longer eligible based on patient's age to complete this topic Procedures Procedure Name Priority Date/Time Associated Diagnosis Comments OPIATES CONFIRMATION, URINE Routine 05/30/2024 4:17 PM EST Arthritis Opioid contract exists BARBITURATE, QUANTITATIVE, URINE Routine 05/30/2024 4:17 PM EST Arthritis Opioid contract exists DRUG ABUSE SCREEN EXPANDED WITH REFLEX CONFIRMATION, URINE Routine 05/30/2024 4:17 PM EST Arthritis Opioid contract exists MICROALBUMIN CREATININE URINE RATIO Routine 05/30/2024 4:17 PM EST Other migraine without status migrainosus, not intractable Controlled type 2 diabetes mellitus with diabetic neuropathy, without long-term current use of insulin ([facility]) Uncomplicated asthma, unspecified asthma severity, unspecified whether persistent Primary hypertension Gastroesophageal reflux disease, unspecified whether esophagitis present Arthritis Anxiety Major depressive disorder, remission status unspecified, unspecified whether recurrent LIPID PANEL WITH REFLEX TO DIRECT LDL Routine 05/30/2024 3:59 PM EST Other migraine without status migrainosus, not intractable Controlled type 2 diabetes mellitus with diabetic neuropathy, without long-term current use of insulin ([facility]) Uncomplicated asthma, unspecified asthma severity, unspecified whether persistent Primary hypertension Gastroesophageal reflux disease, unspecified whether esophagitis present Arthritis Anxiety Major depressive disorder, remission status unspecified, unspecified whether recurrent HEMOGLOBIN A1C Routine 05/30/2024 3:59 PM EST Other migraine without status migrainosus, not intractable Controlled type 2 diabetes mellitus with diabetic neuropathy, without long-term current use of insulin ([facility]) Uncomplicated asthma, unspecified asthma severity, unspecified whether persistent Primary hypertension Gastroesophageal reflux disease, unspecified whether esophagitis present Arthritis Anxiety Major depressive disorder, remission status unspecified, unspecified whether recurrent COMPREHENSIVE METABOLIC PANEL Routine 05/30/2024 3:59 PM EST Other migraine without status migrainosus, not intractable Controlled type 2 diabetes mellitus with diabetic neuropathy, without long-term current use of insulin ([facility]) Uncomplicated asthma, unspecified asthma severity, unspecified whether persistent Primary hypertension Gastroesophageal reflux disease, unspecified whether esophagitis present Arthritis Anxiety Major depressive disorder, remission status unspecified, unspecified whether recurrent DEPRESSION SCREENING Routine 01/28/2024 COLONOSCOPY Routine 10/15/2023 DIABETES EYE EXAM Routine 08/21/2023 PAP SMEAR Routine 02/18/2021 JOSH SCREENING DIGITAL Routine 11/28/2017 3:40 PM EDT Encounter for screening mammogram for malignant neoplasm of breast HEPATITIS C SCREENING Routine 11/18/2012 from Last 3 Months or Most Recently Relevant to Health Maintenance Results * (ABNORMAL) Drug abuse screen expanded with reflex confirmation, urine (05/30/2024 4:17 PM EST) Amphetamine Screen, Ur Negative Negative LAB CHEMISTRY METHOD 5 7:49 PM [facility] Comment:Certain OTC medicati ons containing ephedrine, phenylephrine, pseudoephedrine and phenylpropanolamine can cause false positive results. Barbiturate Screen, Ur Positive(A ) Negative LAB CHEMISTRY METHOD 5 7:49 PM EST [facility] Benzodiazepine Screen, Ur Negative Negative LAB CHEMISTRY METHOD 5 7:49 PM [facility] Cocaine Screen, Ur Negative Negative LAB CHEMISTRY METHOD 5 7:49 PM [facility] Opiate Screen, Ur Negative Negative LAB CHEMISTRY METHOD 5 7:49 PM [facility] Cannabinoid (THC) Screen, Ur Negative Negative LAB CHEMISTRY METHOD 5 7:49 PM [facility] Comment:Specimens from patie nts taking pantoprazole sodium (Protonix) have been shown to produce false positive results. Fentanyl, Ur Negative Negative LAB CHEMISTRY METHOD 5 7:49 PM EST [facility] Oxycodone Screen, Ur Positive(A ) Negative LAB CHEMISTRY METHOD 5 7:49 PM EST [facility] Urine Urine specimen obtained by clean catch procedure / Unknown Non-blood Collection / Unknown 05/30/2024 4:17 PM EST 05/30/2024 4:17 PM EST Narrative [facility] - 05/30/2024 7:49 PM EST Assay [...] [facility] URINE ORDERABLES Final Re sult [facility]) [facility] [address] [place] [address], * Opiates confirmation, urine (05/30/2024 4:17 PM EST) Morphine Confirm, Urine Negative ng/mL 06/03/2024 3:07 PM EST [facility] Codeine Confirm, Urine Negative ng/mL 06/03/2024 3:07 PM EST [facility] Hydrocodone Confirm, Urine Negative ng/mL 06/03/2024 3:07 PM EST [facility] Hydromorphone Confirm, Urine Negative ng/mL 06/03/2024 3:07 PM EST [facility] Oxycodone Confirm, Urine 86 ng/mL 06/03/2024 3:07 PM EST [facility] Oxymorphone Confirm, Urine 555 ng/mL 06/03/2024 3:07 PM EST [facility] Creatinine 70 20 - 250 mg/dL 06/03/2024 3:07 PM EST [facility] Adulterants Negative 06/03/2024 3:07 PM EST [facility] Comment: ? Confirmation (LC/MS/MS) Decision Limits ?Morphine ?25 ng/mL ?Codeine ? 25 ng/mL ?Hydrocodone ? 25 ng/mL ?Hydromorphone ? 25 ng/mL ?Oxycodone ? 25 ng/mL ?Oxymorphone ? 25 ng/mL ?Adulterant Decision Limit: ? General Oxidants ? 200 ug/mL ?The adulterant assay tests for General Oxidants, ??including Chromates and Nitrites. ??Adulterants are ??substances either ingested or added directly to a ??urine specimen to prevent the detection of drug use. If applicable, any drug confirmation testing reported here was developed and the performance characteristics determined by [facility]. This confirmation testing has not been cleared or approved by the FDA. The laboratory is regulated under CLIA as qualified to perform high-complexity testing. This test is used for patient testing purposes. It should not be regarded as investigational or for research. Test performed at [facility], [address], [place], [place] ??[address] ? [phone] Jennifer Rodriguez MD, PhD - [employer]othing Man Urine Urine specimen obtained by clean catch procedure / Unknown Non-blood Collection / Unknown 05/30/2024 4:17 PM EST 05/30/2024 7:49 PM EST [facility] URINE ORDERABLES Final Re sult [facility] [address] [place] [address] * Microalbumin creatinine urine ratio (05/30/2024 4:17 PM EST) Creatinine, Urine 87.0 mg/dL LAB CHEMISTRY METHOD 05/30/2024 7:49 PM EST [facility] Microalb, Ur 9.2 0.0 - 29.0 mg/L LAB CHEMISTRY METHOD 05/30/2024 7:49 PM EST [facility] Microalb/Creat Ratio 11 <30 mg/g creat LAB CHEMISTRY METHOD 05/30/2024 7:49 PM EST [facility] Urine Urine specimen obtained by clean catch procedure / Unknown Non-blood Collection / Unknown 05/30/2024 4:17 PM EST 05/30/2024 4:17 PM EST [facility] URINE ORDERABLES Final Re sult [facility] [address] [place] [address], * Barbiturate, quantitative, urine (05/30/2024 4:17 PM EST) Amobarbital Confirm, Urine Negative ng/mL 06/02/2024 2:31 PM EST [facility] Butabarbital Confirm, Urine Negative ng/mL 06/02/2024 2:31 PM EST [facility] Butalbital Confirm, Urine 576 ng/mL 06/02/2024 2:31 PM EST [facility] Pentobarbital Confirm, Urine Negative ng/mL 06/02/2024 2:31 PM EST [facility] Phenobarbital Confirm, Urine Negative ng/mL 06/02/2024 2:31 PM EST [facility] Secobarbital Confirm, Urine Negative ng/mL 06/02/2024 2:31 PM EST [facility] Creatinine 71 20 - 250 mg/dL 06/02/2024 2:31 PM EST [facility] Adulterants Negative 06/02/2024 2:31 PM EST [facility] Comment: ?Confirmation (GC/MS) Decision Limits ?Amobarbital ?40 ng/mL ??Butabarbital ? 40 ng/mL ??Butalbital ? 40 ng/mL ??Pentobarbital ?40 ng/mL ??Phenobarbital ? 200 ng/mL ??Secobarbital ? 40 ng/mL ?Adulterant Decision Limit: ? General Oxidants ? 200 ug/mL ?The adulterant assay tests for General Oxidants, ??including Chromates and Nitrites. ??Adulterants are ??substances either ingested or added directly to a ??urine specimen to prevent the detection of drug use. If applicable, any drug confirmation testing reported here was developed and the performance characteristics determined by [facility]. This confirmation testing has not been cleared or approved by the FDA. The laboratory is regulated under CLIA as qualified to perform high-complexity testing. This test is used for patient testing purposes. It should not be regarded as investigational or for research. Test performed at [facility], [address], [place], [place] ??[address] ? [phone] Jennifer Rodriguez MD, PhD - [employer]othing Man Urine Urine specimen obtained by clean catch procedure / Unknown Non-blood Collection / Unknown 05/30/2024 4:17 PM EST 05/30/2024 7:49 PM EST us [facility] URINE ORDERABLES Final Re sult [facility] [address] [place] [address] * Lipid panel with reflex to direct LDL (05/30/2024 3:59 PM EST) Cholesterol 179 0 - 200 mg/dL LAB CHEMISTRY METHOD 05/30/2024 8:45 PM [facility] Triglycerides 148 0 - 150 mg/dL LAB CHEMISTRY METHOD 05/30/2024 8:45 PM [facility] HDL 62 >=40 mg/dL LAB CHEMISTRY METHOD 05/30/2024 8:45 PM [facility] LDL Calculated 87 0 - 100 mg/dL LAB CHEMISTRY METHOD 05/30/2024 8:45 PM [facility] VLDL Cholesterol Mikhail 29.6 mg/dL LAB CHEMISTRY METHOD 05/30/2024 8:45 PM [facility] Non HDL Chol. (LDL+VLDL) 117 <145 mg/dL LAB CHEMISTRY METHOD 05/30/2024 8:45 PM [facility] Chol/HDL Ratio 2.9 0.0 - 4.4 LAB CHEMISTRY METHOD 05/30/2024 8:45 PM [facility] Blood Venous blood specimen / Unknown Venipuncture / Unknown 05/30/2024 3:59 PM EST 05/30/2024 3:59 PM EST [facility] BLOOD ORDERABLES Final Re sult [facility] [address] [place] [address], [place] [phone] * (ABNORMAL) Hemoglobin A1c (05/30/2024 3:59 PM EST) Pathologist [facility] Hemoglobin A1C 6.7(H) <6.5 % LAB CHEMISTRY METHOD 05/30/2024 9:47 PM EST [facility] Mean Bld Glu Estim. 146 mg/dL LAB CHEMISTRY METHOD 05/30/2024 9:47 PM [facility] Blood Venous blood specimen / Unknown Venipuncture / Unknown 05/30/2024 3:59 PM EST 05/30/2024 3:59 PM EST [facility] BLOOD ORDERABLES Final Re sult Performing Organization Address City/[facility]/ZIP Co de Phone Number [facility] [address] [place] [address], [place] [phone] * (ABNORMAL) Comprehensive metabolic panel (05/30/2024 3:59 PM EST) Pathologist [facility] Sodium 136 133 - 145 mmol/L LAB CHEMISTRY METHOD 05/30/2024 8:45 PM [facility] Potassium 4.0 3.5 - 5.5 mmol/L LAB CHEMISTRY METHOD 05/30/2024 8:45 PM [facility] Chloride 104 96 - 110 mmol/L LAB CHEMISTRY METHOD 05/30/2024 8:45 PM [facility] CO2 27 21 - 32 mmol/L LAB CHEMISTRY METHOD 05/30/2024 8:45 PM [facility] Anion Gap 5 3 - 11 LAB CHEMISTRY METHOD 05/30/2024 8:45 PM [facility] Glucose 152(H) 70 - 100 mg/dL LAB CHEMISTRY METHOD 05/30/2024 8:45 PM [facility] BUN 16 5 - 25 mg/dL LAB CHEMISTRY METHOD 05/30/2024 8:45 PM [facility] Creatinine 0.70 0.50 - 1.10 mg/dL LAB CHEMISTRY METHOD 05/30/2024 8:45 PM [facility] eGFR 97 >=60 mL/min/1. 73m2 LAB CHEMISTRY METHOD 05/30/2024 8:45 PM [facility] Comment:Calculation based on the??Chronic Kidney Disease Epidemiology Collaboration (CKD-EPI) equation refit??without adjustment for race. BUN/Creatinine Ratio 22.9 LAB CHEMISTRY METHOD 05/30/2024 8:45 PM [facility] Calcium 9.2 8.5 - 10.5 mg/dL LAB CHEMISTRY METHOD 05/30/2024 8:45 PM [facility] AST (SGOT) 16 10 - 42 unit/L LAB CHEMISTRY METHOD 05/30/2024 8:45 PM [facility] ALT (SGPT) 23 10 - 60 unit/L LAB CHEMISTRY METHOD 05/30/2024 8:45 PM [facility] Alkaline Phosphatase 133(H) 42 - 121 unit/L LAB CHEMISTRY METHOD 05/30/2024 8:45 PM [facility] Total Protein 8.0 6.0 - 8.0 g/dL LAB CHEMISTRY METHOD 05/30/2024 8:45 PM [facility] Albumin 4.2 3.2 - 5.0 g/dL LAB CHEMISTRY METHOD 05/30/2024 8:45 PM [facility] Total Bilirubin 0.3 0.0 - 1.4 mg/dL LAB CHEMISTRY METHOD 05/30/2024 8:45 PM [facility] Blood Venous blood specimen / Unknown Venipuncture / Unknown 05/30/2024 3:59 PM EST 05/30/2024 3:59 PM EST Ezequiel MAYES LAB BLOOD ORDERABLES Final Re sult [facility] ([facility]) HOSPITAL LAB [address] [place] [address], [place] [phone] * Depression Screening (01/28/2024) Depression Screening abstracted Historical Provider MD HEALTH MAINTENANCE Final Result * Colonoscopy (10/15/2023) Pathologist [facility] Colonoscopy no interpretation , abstracted Anatomical Region Laterality Modality Other Historical Provider HEALTH MAINTENANCE Final Result * Diabetes Eye Exam (08/21/2023) Pathologist [facility] Diabetes: Annual Retina Eye Exam abstracted Historical Provider HEALTH MAINTENANCE Final Result * Pap Smear (02/18/2021) Pap smear no interpretation , abstracted Historical Provider MD HEALTH MAINTENANCE Final Result * JOSH SCREENING DIGITAL (11/28/2017 3:40 PM EDT) Anatomical Region Laterality Modality Mammography 11/28/2017 9:19 AM EDT Narrative 11/28/2017 3:40 PM EDT [facility] Diagnostic Imaging Department [address], [place] [id number] Patient: ??MAYA WAGNER N ?/Age/Sex: 1960 - 57 - F Unit#: ??[id number] ? Location/Status: ??SPDIMAM/REG CLI ? Mnemonic/Ordering Site: ??DIGSC/SPMAM Ordering Physician: ??SHAYY CARRENO MD Josh Screening Digital - 11/28/17 - 0 EXAM: [facility] Screening Digital EXAM DATE AND TIME: 11/28/2017 9:46 AM HISTORY: ??Screening. Right breast biopsy in 2004, pathology benign. Left breast cyst aspiration in 2016. Two maternal cousins had premenopausal breast cancer. Annual screening. COMPARISON: ??08/28/16, 08/26/15, 03/02/14, 02/27/13 and earlier exams dating back to 2007. TECHNIQUE: CC and MLO views of both breasts were obtained using full field digital mammography. Bilateral digital breast tomosynthesis was performed in the MLO projection. Computer aided detection with the CBIT A/S 7.2-H was employed. TISSUE DENSITY: b. There are scattered areas of fibroglandular density. FINDINGS: No suspicious masses, grouped microcalcifications, or areas of architectural distortion are seen. The previously aspirated left breast cyst is no longer identified. A few benign microcalcifications are scattered bilaterally, unchanged. A biopsy marker is again seen in the upper outer quadrant of the right breast. Vascular calcification is present. The skin is unremarkable. IMPRESSION: No mammographic evidence of malignancy is seen. A negative mammogram in the presence of a clinically suspicious palpable abnormality does not preclude the possibility of malignancy or alter the indications for biopsy. BI-RADS: ??Category 2: Benign RECOMMENDATION(S): 1: Routine screening mammogram BILATERAL in 1 year. 77696, 38193 3342F, 7025F Dictating Physician: ??BECKY LICEA MD Electronically Signed by: ??BECKY LICEA MD Dic Date/Time: ??11/28/17 1538 Sign date/Time: ??11/28/17 1540 Procedure Note Becky Licea MD - 04/25/2022 [facility] Diagnostic Imaging Department [address] [place] [id number] Patient: MAYA WAGNER Jaxon /Age/Sex: 1960 - 57 - F Unit#: [id number] Location/Status: SPDIMAM/REG CLI Mnemonic/Ordering Site: [facility] Ordering Physician: SHAYY CARRENO MD Josh Screening Digital - 11/28/17 - 0 EXAM: Josh Screening Digital EXAM DATE AND TIME: 11/28/2017 9:46 AM HISTORY: Screening. Right breast biopsy in 2004, pathology benign. Leftbreast cyst aspiration in 2016. Two maternal cousins had premenopausal breastcancer. Annual screening. COMPARISON: 08/28/16, 08/26/15, 03/02/14, 02/27/13 and earlier exams datingback to 2007. TECHNIQUE: CC and MLO views of both breasts were obtained using fullfield digital mammography. Bilateral digital breast tomosynthesis was performedin the MLO projection. Computer aided detection with the CBIT A/S 7.2-Hwas employed. TISSUE DENSITY: b. There are scattered areas of fibroglandular density. FINDINGS: No suspicious masses, grouped microcalcifications, or areas ofarchitectural distortion are seen. The previously aspirated left breast cyst is nolonger identified. A few benign microcalcifications are scattered bilaterally, unchanged. A biopsy marker is again seen in the upper outer quadrant ofthe right breast. Vascular calcification is present. The skin is unremarkable. IMPRESSION: No mammographic evidence of malignancy is seen. A negative mammogram in the presence of a clinically suspicious palpable abnormality does not preclude the possibility of malignancy or alter the indications for biopsy. BI-RADS: Category 2: Benign RECOMMENDATION(S): 1: Routine screening mammogram BILATERAL in 1 year. 49025, 05603 3342F, 7025F Dictating Physician: BECKY LICEA MD Electronically Signed by: BECKY LICEA MD Dic Date/Time: 11/28/17 1538 Sign date/Time: 11/28/17 1540 Shayy Carreno MD IMG BI PROCEDURES Final Result * Hepatitis C Screening (11/18/2012) Hepatitis C Screening abstracted Historical Provider HEALTH MAINTENANCE Final Result from Last 3 Months or Most Recently Relevant to Health Maintenance Insurance MEDICARE Member Subscriber Plan / Payer (Ef fective 2017-Present) Name:Maya Wagner Relation to Subscriber:Self Name:Maya Wagner Payer ID:[id number] Group ID:[id number] Type:Not on file Address: [place] [address] [address] [id number] Care Teams [employer] Relationship Specialty Start Date End Date Lennie Moore MD [address] [place] [id number] PCP - General Internal Medicine 03/13/24
== END 2024-07-02 12:04 | disposition home or self-care (01) ==
PROVIDERS: PCP Internal Medicine; Visit Provider Nurse Practitioner Family
DX: G43.109 Migraine with aura, not intractable, without status migrainosus (principal); G47.33 Obstructive sleep apnea (adult) (pediatric)
CPT/HCPCS: 99214

== ENCOUNTER → 2024-07-02 11:25 | Outpatient (BNVA) | payer OTHER, SELFPAY | PROVIDERS: PCP Internal Medicine; Visit Provider Nurse Practitioner Family | DX: G43.109 Migraine with aura, not intractable, without status migrainosus (principal); G47.33 Obstructive sleep apnea (adult) (pediatric); Z79.899 Other long term (current) drug therapy | CPT/HCPCS: 99212 ==